=== PATIENT | male | born 1995 | race African-American/Black ===

== ENCOUNTER 2019-01-21 12:02 | Emergency (ER) | payer OTHER, SELFPAY | END 2019-01-21 12:42 | disposition home or self-care (01) | LOC: SCSER 12:02 | DX: M54.2 Cervicalgia (principal); M54.9 Dorsalgia, unspecified; V43.62XA Car passenger injured in collision with other type car in traffic accident, initial encounter | CPT/HCPCS: 99283 ==

== ENCOUNTER 2020-12-09 01:55 | Emergency (ER) | payer OTHER | END 2020-12-09 02:33 | disposition home or self-care (01) | LOC: ERS 01:55 | DX: J30.9 Allergic rhinitis, unspecified (principal); I10 Essential (primary) hypertension | CPT/HCPCS: 99281 ==

== ENCOUNTER 2021-12-16 19:00 | Emergency (ER) | payer OTHER, SELFPAY | END 2021-12-16 22:13 | disposition home or self-care (01) | LOC: ERS 19:00 | DX: S01.01XA Laceration without foreign body of scalp, initial encounter (principal); S00.212A Abrasion of left eyelid and periocular area, initial encounter; I10 Essential (primary) hypertension; V43.62XA Car passenger injured in collision with other type car in traffic accident, initial encounter | CPT/HCPCS: 70450; 70498; 72125 ==

== ENCOUNTER 2024-08-26 23:25 | Emergency (ER) | payer OTHER, SELFPAY | END 2024-08-27 00:57 | LOC: ERS 23:25 | DX: Z02.89 Encounter for other administrative examinations (principal); T40.715A Adverse effect of cannabis, initial encounter; I10 Essential (primary) hypertension; Z55.6 Problems related to health literacy | CPT/HCPCS: 36416; 93005; 99284 ==